=== PATIENT | female | born 1960 | race African-American/Black ===

== ENCOUNTER 2018-03-25 16:18 | Emergency (ER) | payer MEDICAID ==
[~2018-03-25] VITALS: Ht 170.2 cm; Wt 80.0 kg
[2018-03-25 16:23] VITALS: BP 145/85
== END 2018-03-26 00:08 | disposition left against medical advice (07) ==
LOC: ER 20:49
DX: Z53.21 Procedure and treatment not carried out due to patient leaving prior to being seen by health care provider (principal)